=== PATIENT | male | born 1975 | race Caucasian/White ===

== ENCOUNTER 2018-04-07 13:25 | Inpatient (IN) | payer MEDICAID, MEDICARE ==
[2018-04-07 13:26] VITALS: BMI 22.1
--- NOTE | 2018-04-07 14:12 | C.PDOC ---
History Of Present Illness 42-year-old male brought in to the ED for psychiatric evaluation due to suicidal ideation. Patient told his brother he wanted to jump in front of a bus today. Of note, patient was seen here in August 2017 for similar complaints, as well as substance abuse. He admits to IVDA heroin abuse, last use was this morning. Patient denies any redness or swelling on his arms. No fever or chills. Time Seen by Provider: 04/07/18 13:42 Chief Complaint (Nursing): Psychiatric Evaluation History Per: Patient History/Exam Limitations: no limitations Onset/Duration Of Symptoms: Days Current Symptoms Are (Timing): Still Present Associated Symptoms: Suicidal Thoughts Additional History Per: Family (brother) Past Medical History Reviewed: Historical Data, Nursing Documentation, Vital Signs Vital Signs: Last Vital Signs Temp 98.2 F 04/07/18 13:29 Pulse 93 H 04/07/18 13:29 Resp 22 04/07/18 13:29 BP 154/77 H 04/07/18 13:29 Pulse Ox 97 04/07/18 14:15 - Medical History PMH: Depression, Hepatitis (C), Schizophrenia Denies: Diabetes, HIV, HTN, Seizures, Sexually Transmitted Disease Surgical History: Back Surgery - [facility] Procedures DETOXIFICATION SERVICES FOR SUBSTANCE ABUSE TREATMENT (08/30/17) INDIV PSYCHOTHERAPY FOR SUBSTANCE ABUSE TREATMENT, SUPPORT (08/30/17) INDIV PSYCHOTHERAPY FOR SUBSTANCE ABUSE, PSYCHOEDUCATION (08/30/17) MEDICATION MANAGEMENT (08/30/17) PHARMACOTHERAPY FOR SUBSTANCE ABUSE, NICOTINE REPLACE (08/30/17) Family History: States: Unknown Family Hx - Social History Hx Tobacco Use: Yes Hx Alcohol Use: No Hx Substance Use: Yes - Immunization History Hx Tetanus Toxoid Vaccination: No Hx Influenza Vaccination: No Hx Pneumococcal Vaccination: No Review Of Systems Except As Marked, All Systems Reviewed And Found Negative. Constitutional: Negative for: Fever, Chills, Sweats Cardiovascular: Negative for: Chest Pain Respiratory: Negative for: Shortness of Breath Gastrointestinal: Negative for: Vomiting, Abdominal Pain Skin: Negative for: Rash, Lesions Psych: Positive for: Depression, Suicidal ideation. Negative for: Withdrawal Physical Exam - Physical Exam Appears: Non-toxic, No Acute Distress Skin: Normal Color, Warm, Other (Track joel noted to bilateral antecubital fossa, no erythema or edema) Head: Atraumatic, Normacephalic Eye(s): bilateral: Normal Inspection Oral Mucosa: Moist Neck: Normal ROM Chest: Symmetrical Cardiovascular: Rhythm Regular, No Murmur Respiratory: Normal Breath Sounds, No Accessory Muscle Use Gastrointestinal/Abdominal: Soft, No Tenderness, No Distention Extremity: Bilateral: Normal Color And Temperature, Normal ROM Pulses: Left Radial: Normal, Right Radial: Normal Neurological/Psych: Oriented x3, Normal Speech Gait: Other (Ambulates using a cane, at baseline) ED Course And Treatment - Laboratory Results Result Diagrams: 04/07/18 14:18 04/07/18 14:18 Lab Interpretation: Abnormal (+opiates) O2 Sat by Pulse Oximetry: 97 (RA) Pulse Ox Interpretation: Normal - Physician Consult Information Outcome Of Conversation: 1600: d/w Crisis, ok to admit to Psych. pt calm cooperative Medical Decision Making Medical Decision Making: Impression: Suicidal ideation, heroin abuse Plan: --CMP --CBC --Alcohol serum --UDS --UA --Will observe on 1:1 --Awaiting crisis evaluation Disposition Doctor Will See Patient In The: Hospital Counseled Patient/Family Regarding: Studies Performed, Diagnosis - Disposition Disposition: HOSPITALIZED Disposition Time: 15:59 Condition: GOOD Forms: [facility] (Macedonian) - Clinical Impression Clinical Impression: Opioid use disorder, severe, dependence, Depression - Scribe Statement The provider has reviewed the documentation as recorded by the Carroll Vu Provider Attestation: All medical record entries made by the Jatinderibaugustina were at my direction and personally dictated by me. I have reviewed the chart and agree that the record accurately reflects my personal performance of the history, physical exam, medical decision making, and the department course for this patient. I have also personally directed, reviewed, and agree with the discharge instructions and disposition.
[2018-04-07 14:24] LABS: BASO # 0.1 K/uL (0.0-0.2); BASO % 1.3 % (0.0-2.0); EOS % 0.7 % (0.0-4.0); HEMOGLOBIN 12.6 g/dL (12.0-18.0); LYMPH # 0.9 K/uL (1.0-4.3); LYMPH % 17.5 % (20.0-40.0); MEAN CELL VOLUME 89.7 fL (80.0-94.0); MEAN CORPUSCULAR HEMOGLOBIN 30.7 pg (27.0-31.0); MEAN CORPUSCULAR HGB CONC 34.2 g/dL (33.0-37.0); MEAN PLATELET VOLUME 9.8 fL (7.2-11.7); MONO # 0.4 K/uL (0.0-0.8); MONO % 7.5 % (0.0-10.0); NEUT # 3.8 K/uL (1.8-7.0); NRBC % 0.1 % (0.0-2.0); RBC 4.12 Mil/uL (4.40-5.90); WHITE BLOOD COUNT 5.2 K/uL (4.8-10.8)
[2018-04-07 14:35] LABS: ALB/GLOB RATIO 1.4 (1.0-2.1); ALBUMIN 4.3 g/dL (3.5-5.0); ALT/SGPT 41 U/L (21-72); AST/SGOT 25 U/L (17-59); BLOOD UREA NITROGEN 14 mg/dL (9-20); CALCIUM 8.6 mg/dl (8.6-10.4); GFR NON-AFRICAN AMERICAN > 60
[2018-04-07 15:23] LABS: SQUAMOUS EPITHIAL < 1 /hpf (0-5); URINE BILIRUBIN NEGATIVE (NEGATIVE); URINE BLOOD NEGATIVE (NEGATIVE); URINE CLARITY Clear (Clear); URINE COLOR Yellow (YELLOW); URINE GLUCOSE (UA) NORMAL (Normal); URINE LEUKOCYTE ESTERASE 1+ Leu/uL (Negative); URINE PROTEIN NEGATIVE (NEGATIVE)
[2018-04-07 15:42] LABS: BARBITURATES, UR NEGATIVE (NEGATIVE); BENZODIAZEPINES, UR NEGATIVE (NEGATIVE); PHENCYCLIDINE, UR NEGATIVE (NEGATIVE)
[2018-04-07 16:10] LABS: OPIATES, UR POSITIVE (NEGATIVE)
--- NOTE | 2018-04-07 19:15 | PCM.BM ---
<Izzy Merchant - Last Filed: 04/07/18 19:12> Treatment Plan Problems - Problems identified on initial assessmt Depression Date Initiated: 04/07/18 Time Initiated: 19:12 Assessment reference: NA Status: Active Substance Abuse Date Initiated: 04/07/18 Time Initiated: 19:13 Assessment reference: NA Status: Active Treatment assets and liabiliti Patient Assests: adapts well, cooperative, ADL independent, physically healthy, negotiates basic needs, cognitively intact Patient Liabilities: live alone (Homeless), financial problems, substance abuse (Heroin IV use), medical problems (Hep C, Surgery in spine) - Milieu Protocol Maintain good personal hygiene: daily Encourage regular showers, daily Remind patient to perform daily oral care, daily Assist patient to perform ADL's (Self) Conduct patient checks and document Observation sheet: Q15 minutes (Safety) Maintain personal safety: every shift Educate patient to report safety concerns to staff, every shift Monitor environment for contraband/sharps Medication safety: Monitor for expected outcome, potential side effects: every shift, Assess barriers to learning: every shift, Assess readiness for medication education: every shift <Leslee Paiz - Last Filed: 04/12/18 12:12> Family Contact Family involvement: Famliy/SO not involved - Goals for Treatment Patient goals for treatment: "I want to go to rehab." Discharge/Continuing Care - Education Needs Education Needs: Patient Medication, Patient Coping Skills, Patient Placement options, Patient Community resources - Discharge Discharge Criteria: Tolerates medication w/o severe side effects, No longer exhibiting s/s of withdrawal, Reduction of target symptoms Discharge to:: Substance Abuse Rehab - Treatment Team Participation Discussed with Family/SO: No Was Patient/Family/SO present at Treatment Team Meeting: Yes <Aurelio Lopez - Last Filed: 04/14/18 13:15> - Diagnosis (1) Major depressive disorder Status: Acute Interventions: 04/14/18 13:15 * Assess/adjust medications daily and /or as needed * See patient on an individual basis 7x/week to assess symptoms of depression * Monitor for side effects & effectiveness of medications * (2) Opioid use disorder, severe, dependence Status: Acute Interventions: 04/14/18 13:15 * Assess 7x/week regarding severity of withdrawal * Educate regarding risks, benefits, side effects and alternatives of medications * Use Motivational Interviewing for abstinence * Use CBT for relapse prevention * Medication management for withdrawal symptoms * Encourage medication assisted treatment *
--- NOTE | 2018-04-08 23:26 | PCM.PSYCH ---
Initial Psychiatric Evaluation - Initial Psychiatric Evaluation Legal Status: Capacity Chief Complaint (in patient's own words): I'M DEPRESSED AND I NEED HELP TO GET AND STAY SOBER Patient's Reaction to Hospitalization: I FEEL SAFE HERE History of Present Illness and Precipitating Events: PT IS A 42 YEAR OLD HOMELESS SINGLE UNEMPLOYED MALE WHO CAME TO ED BECAUSE OF DEPRESSION AND HEROIN ADDICTION. PT IS ANHEDONIC, ANERGIC AND HAS AMOTIVATION. PT FEELS HELPLESS, HOPELESS AND WORTHLESS. HE IS NOT SLEEPING. PT STARTED USING HEROIN AGE 17. AT HIS WORST HE USED 80 BAGS A DAY. PT NOW USES ABOUT 15 BAGS A DAY. HE HAS HAD 10-20N DETOXES AND HAS BEEN IN REHAB ABOUT 10 TIMES, HIS LONGEST PERIOD OF VOLUNTARY WAS SEVERAL MONTHS. HE WAS INCARCERATED FOR 5 YEARS BECAUSE HE WAS CONVICTED OF ROBBERY. BOTH PARENTS ARE ALIVE . THEY WHEN PT WAS ABOUT 5 YEARS OLD. PT HAS BEEN HOSPITALIZED FOR PSYCHIATRIC REASONS AT [facility] [place]. HE HAS TRIED TO KILL HIMSELF BY OVERDOSING AND STEPPING INTO TRAFFIC Current Medications: Active Medications Generic Name Dose Route Start Last Admin Trade Name Freq PRN Reason Stop Dose Admin Hydroxyzine HCl 50 mg 04/07/18 19:32 18 14:13 Atarax PO 50 mg Q6H PRN Administration Anxiety Ibuprofen 600 mg 04/07/18 19:32 Motrin Tab PO Q6H PRN Pain, moderate (4-7) Mirtazapine 15 mg 04/07/18 22:00 04/08/18 22:52 Remeron PO Not Given HS LACEY Paroxetine HCl 20 mg 04/09/18 10:00 Paxil PO DAILY [facility] Pneumococcal Polyvalent Vaccine 0.5 ml 04/10/18 18:00 Pneumovax 23 Vaccine IM 04/10/18 18:01 .ONCE ONE Trazodone HCl 100 mg 04/07/18 19:32 Desyrel PO HS PRN Insomnia Past Psychiatric History - Past Psychiatric History Prior Professional Help: SEE HPI Pertinent Medical Hx (Current Medical&Sleep Prob, Allergies): Allergies Allergy/AdvReac Type Severity Reaction Status Date / Time No Known Allergies Allergy Verified 04/07/18 13:36 Review of Systems - Constitutional Constitutional: Chills, Sweats, Malaise - EENT Eyes: UNREMARKABLE Ears: UNREMARKABLE Nose/Mouth/Throat: UNREMARKABLE - Cardiovascular Cardiovascular: Radiating Pain, UNREMARKABLE - Respiratory Respiratory: UNREMARKABLE - Gastrointestinal Gastrointestinal: Diarrhea, Nausea - Genitourinary Genitourinary: UNREMARKABLE - Reproductive: Male Reproductive:Male: UNREMARKABLE - Musculoskeletal Musculoskeletal: Arthralgias, Back Pain, Myalgias - Integumentary Integumentary: UNREMARKABLE - Neurological Neurological: UNREMARKABLE - Psychiatric Psychiatric: Abnormal Sleep Pattern, Anhedonia, Change in Appetite, Depression, Difficulty Concentrating, Hopelessness - Endocrine Endocrine: UNREMARKABLE - Hematologic/Lymphatic Hematologic: UNREMARKABLE Mental Status Examination - Personal Presentation Personal Presentation: Looks older than stated age - Affect Affect: Constricted - Motor Activity Motor Activity: Calm - Reliability in Providing Information Reliability in Providing Information: Fair - Speech Speech: Organized - Mood Mood: Depressed, Anxious - Formal Thought Process Formal Thought Process: No Impairment - Obsessions/Compulsions Obsessions: No Compulsions: No - Cognitive Functions Orientation: Person, Place, Situation, Time Sensorium: Alert Attention/Concentration: Attentive Abstract Thinking: Petros Estimate of Intelligence: Average Judgement: Intact, as evidence by: Good judgement Memory: Recent intact, as evidence by: Ability to recall events of the day, Remote intact, as evidenced by: Abilit to recall sig. life events - Risk Risk: Suicidal, Withdrawal - Strength & Assets Inventory Strength & Assets Inventory: Life experience, Cooperative - Limitations Limitations: Living alone DSM 5 DX - DSM 5 DSM 5 Diagnosis: MAJOR DEPRESSIVE DISORDER RECURRENT SEVERE WITHOUT PSYCHOTIC FEATURES PAXIL NEURONTIN TRAZODONE SC CBT GROUP MILIEU AND RECREATIONAL THERAPY SUPPORTIVE PSYCHOTHERAPY OPIOID WITHDRAWAL METHADONE TAPER OPIATE USE DISORDER CBT SC GROUP MILIEU AND RECREATIONAL THERAPY SUPPORTIVE PSYCHOTHERAPY - Recommended/Plan of Treatment Treatment Recommendations and Plan of Treatment: SEE ABOVE Projected ELOS: 10 DAYS Prognosis: GOOD WITH TREATMENT Discharge Plan and Discharge Criteria: NO SUICIDAL IDEATION AND NO ACUTE WITHDRAWAL SYMPTOMS - Smoking Cessation Smoking Cessation Initiated: No
--- NOTE | 2018-04-10 00:40 | PCM.PYCHPN ---
Psychiatric Progress Note - Psychiatric Progress Note Patient Chief Complaint: I WANT TO FEEL BETTER Problems Identified/Issues Discussed: PT SEEN AND EXAMINED DISCUSSED WITH STAFF REVIEWED NURSES' NOTES DISCUSSED WITH PT SIGNS AND SYMPTOMS OF DEPRESSION AND AFTERCARE OPTIONS Medical Problems: NONE NOTED OR REPORTED Diagnostic Results: REVIEWED DSM 5 Symptoms Update: INSOMNIA POOR APPETITE Medication Change: Yes (METHADONE TAPER) Medical Record Reviewed: Yes Mental Status Examination - Cognitive Function Orientation: Person, Place, Situation, Time Memory: Intact Attention: Poor Concentration: Poor Association: WNL Fund of Knowledge: WNL - Mood Mood: Depressed, Anxious - Affect Affect: Constricted - Speech Speech: Appropriate - Formal Thought Process Formal Thought Process: No Impairment - Suicidal Ideation Suicidal Ideation: No - Homicidal Ideation Homicidal Ideation: No Goal/Treatment Plan - Goal/Treatment Plan Need for Continued Stay: Remain at risks for inpatient hospitalization, Discharge may exacerbated symptoms Progress Toward Problem(s) and Goals/Treatment Plan: MDD ME CBT GROUP MILIEU AND RECREATIONAL THERAPY SUPPORTIVE PSYCHOTHERAPY OPIOID WITHDRAWAL METHADONE TAPER OPIOID USE DISORDER CBT ME GROUP MILIEU AND RECREATIONAL THERAPY SUPPORTIVE PSYCHOTHERAPY Estimated Date of D/C: 04/15/18 - Smoking Cessation Smoking Cessation Initiated: No
[2018-04-10 06:10] VITALS: O2SAT 98
--- NOTE | 2018-04-10 10:49 | PCM.PYCHPN ---
Psychiatric Progress Note - Psychiatric Progress Note Patient seen today, length of contact: 15 min Patient Chief Complaint: I am feeling depressed.' Problems Identified/Issues Discussed: Patient seen and evaluated, chart reviewed and discussed with the nurse. Pt still reports depressed mood and at times feelings of hopelessness and helplessness. He remained isolated and withdrawn, and confined to his room. He still reports withdrawal symptoms including cramps, nausea, and joint pains. He denies any AVH or any paranoia. Patient is compliant with medications and denies any side effects. Symptoms are improving but pt needs more time to stabilize. Support and psychoeducation given. Medication Change: Yes (METHADONE TAPER) Medical Record Reviewed: Yes Mental Status Examination - Cognitive Function Orientation: Person, Place, Situation, Time Memory: Intact Attention: WNL Concentration: Poor Association: WNL Fund of Knowledge: WNL - Mood Mood: Depressed, Anxious - Affect Affect: Constricted - Speech Speech: Appropriate - Formal Thought Process Formal Thought Process: No Impairment - Suicidal Ideation Suicidal Ideation: No - Homicidal Ideation Homicidal Ideation: No Goal/Treatment Plan - Goal/Treatment Plan Need for Continued Stay: Remain at risks for inpatient hospitalization, Discharge may exacerbated symptoms Progress Toward Problem(s) and Goals/Treatment Plan: Major depressive disorder recurrent severe without psychotic features CBT Psychoeducation Supportive therapy, group therapy Paxil 20 mg by mouth daily Mirtazapine 15 mg PO QHS Neurontin 300 mg PO TID Gabapentin for augmentation Trazodone for insomnia Hydroxyzine for anxiety Opiate use disorder severe CBT Psychoeducation Supportive therapy, individual therapy Use [place] for abstinence Opiate withdrawal uncomplicated CBT Psychoeducation Supportive therapy, individual therapy Methadone taper G Estimated Date of D/C: 04/15/18
[2018-04-10] MEDS ORDERED: Pneumococcal 23-Valent Vaccine IM ONE (18:00)
--- NOTE | 2018-04-12 00:43 | PCM.PYCHPN ---
Psychiatric Progress Note - Psychiatric Progress Note Patient seen today, length of contact: 15 min Patient Chief Complaint: I am feeling depressed.' Problems Identified/Issues Discussed: Patient seen and evaluated, chart reviewed and discussed with the nurse. As per the staff he appears little better than yesterday. He still reports depressed mood but reports some improvement in feelings of hopelessness and helplessness. He remained isolated and withdrawn, and confined to his room. He still reports withdrawal symptoms including cramps, nausea, and joint pains. He denies any AVH or any paranoia. Patient is compliant with medications and denies any side effects. Symptoms are improving but pt needs more time to stabilize. Support and psychoeducation given. Medication Change: Yes (METHADONE TAPER) Medical Record Reviewed: Yes Mental Status Examination - Cognitive Function Orientation: Person, Place, Situation, Time Memory: Intact Attention: WNL Concentration: Poor Association: WNL Fund of Knowledge: WNL - Mood Mood: Depressed, Anxious - Affect Affect: Constricted - Speech Speech: Appropriate - Formal Thought Process Formal Thought Process: No Impairment - Suicidal Ideation Suicidal Ideation: No - Homicidal Ideation Homicidal Ideation: No Goal/Treatment Plan - Goal/Treatment Plan Need for Continued Stay: Remain at risks for inpatient hospitalization, Discharge may exacerbated symptoms Progress Toward Problem(s) and Goals/Treatment Plan: Major depressive disorder recurrent severe without psychotic features CBT Psychoeducation Supportive therapy, group therapy Paxil 20 mg by mouth daily Mirtazapine 15 mg PO QHS Gabapentin for augmentation Trazodone for insomnia Hydroxyzine for anxiety Opiate use disorder severe CBT Psychoeducation Supportive therapy, individual therapy Use [place] for abstinence Opiate withdrawal uncomplicated CBT Psychoeducation Supportive therapy, individual therapy Methadone taper G Estimated Date of D/C: 04/15/18 - Smoking Cessation Smoking Cessation Initiated: No
--- NOTE | 2018-04-12 14:24 | PCM.PYCHPN ---
Psychiatric Progress Note - Psychiatric Progress Note Patient seen today, length of contact: 15 min Patient Chief Complaint: "I feel great." Problems Identified/Issues Discussed: Pt is seen, chart reviewed, case discussed with staff. Pt is compliant with medications and reports no side-effects. Symptoms are improving but needs more time to stabilize; pt is happy with treatment. After care discussed; pt will be attending [facility] after discharge. Medication Change: Yes (METHADONE TAPER) Medical Record Reviewed: Yes Mental Status Examination - Cognitive Function Orientation: Person, Place, Situation, Time Memory: Intact Attention: WNL Concentration: Poor Association: WNL Fund of Knowledge: WNL - Mood Mood: Depressed, Anxious - Affect Affect: Constricted - Speech Speech: Appropriate - Formal Thought Process Formal Thought Process: No Impairment - Suicidal Ideation Suicidal Ideation: No - Homicidal Ideation Homicidal Ideation: No Goal/Treatment Plan - Goal/Treatment Plan Need for Continued Stay: Remain at risks for inpatient hospitalization, Discharge may exacerbated symptoms Progress Toward Problem(s) and Goals/Treatment Plan: Continue medications. Support and psychoeducation daily Attend groups and activities daily After care planning by DAYNE 15 min Estimated Date of D/C: 04/15/18
[2018-04-13 06:50] VITALS: RESP 18
--- NOTE | 2018-04-13 13:48 | PCM.PYCHPN ---
Psychiatric Progress Note - Psychiatric Progress Note Patient seen today, length of contact: 15 min Patient Chief Complaint: I am feeling little better.' Problems Identified/Issues Discussed: Patient seen and evaluated, chart reviewed and discussed with the nurse. Pt reports some improvement in the depressed mood and reports some improvement in feelings of hopelessness and helplessness. He remained isolated and withdrawn, and confined to his room. He reports some improvement in the withdrawal symptoms. He denies any AVH or any paranoia. Patient is compliant with medications and denies any side effects. Symptoms are improving but pt needs more time to stabilize. Support and psychoeducation given. Medication Change: Yes (METHADONE TAPER) Medical Record Reviewed: Yes Mental Status Examination - Cognitive Function Orientation: Person, Place, Situation, Time Memory: Intact Attention: WNL Concentration: Poor Association: WNL Fund of Knowledge: WNL - Mood Mood: Depressed, Anxious - Affect Affect: Constricted - Speech Speech: Appropriate - Formal Thought Process Formal Thought Process: No Impairment - Suicidal Ideation Suicidal Ideation: No - Homicidal Ideation Homicidal Ideation: No Goal/Treatment Plan - Goal/Treatment Plan Need for Continued Stay: Remain at risks for inpatient hospitalization, Discharge may exacerbated symptoms Progress Toward Problem(s) and Goals/Treatment Plan: Major depressive disorder recurrent severe without psychotic features CBT Psychoeducation Supportive therapy, group therapy Paxil 20 mg by mouth daily Mirtazapine 15 mg PO QHS Gabapentin for augmentation Trazodone for insomnia Hydroxyzine for anxiety Opiate use disorder severe CBT Psychoeducation Supportive therapy, individual therapy Use [place] for abstinence Opiate withdrawal uncomplicated CBT Psychoeducation Supportive therapy, individual therapy Methadone taper G Estimated Date of D/C: 04/15/18
[2018-04-14 06:43] VITALS: TEMP 97.9
--- NOTE | 2018-04-14 10:03 | PCM.PYCHDC ---
Mental Status Examination - Mental Status Examination Orientation: Person, Place, Situation, Time Memory: Intact Mood: Neutral Affect: Constricted Speech: Soft Attention: WNL Concentration: WNL Association: WNL Fund of Knowledge: WNL Formal Thought Process: No Impairment Description of patient's judgement and insight: good, fair Psychotic Thoughts and Behaviors: denies any AVH Suicidal Ideation: No Current Homicidal Ideation?: No Discharge Summary - Discharge Note Reason for Hospitalization: Pt is a 42 year old homeless single unemployed male who came to ed because of depression and heroin addiction. Pt is anhedonic, anergic and has amotivation. Pt feels helpless, hopeless and worthless. He is not sleeping. Pt started using heroin age 17. At his worst he used 80 bags a day. Pt now uses about 15 bags a day. He has had 10-20n detoxes and has been in rehab about 10 times, his longest period of voluntary was several months. He was incarcerated for 5 years because he was convicted of robbery. Both parents are alive . They when pt was about 5 years old. Pt has been hospitalized for psychiatric reasons at [facility]. He has tried to kill himself by overdosing and stepping into traffic Consultations:: List each consultation separately and include: 1. Reason for request. 2. Findings. 3. Follow-up Summary of Hospital Course include:: 1. Description of specific treatment plan utilized for patients during their course of treatmen. 2. Summarize the time- course for resolution of acute symptoms and/or regressed behaviors. 3. Describe issues identified and worked on during hospitalization. 4. Describe medication utilized. 5. Describe medical problems identified and treated. 6. Reassessment of suicide risk Summary of Hospital Course: During the course of his stay, patient (pt) started progressively improving and no longer remained irritable, depressed, and suicidal. Remeron and paxil were started and pt showed a very good response. His mood and anxiety were improved and he started attending groups and meetings and started socializing. Patient denied any feelings of hopelessness, helplessness, and worthlessness, denied any problem with the sleep or appetite, denied suicidal ideation or homicidal ideation. Pt denied any auditory or visual hallucinations. He denied any withdrawal symptoms. Pt was treated with medications along with supportive therapy, milieu therapy and group therapy. Some changes were made in his current medications and patient was discharged on following medications. He tolerated these medications very well and denied any side effects. - Final Diagnosis (DSM 5) Condition upon Discharge: GOOD DSM 5: Major depressive disorder recurrent severe without psychotic features Opioid withdrawal Opiate use disorder Disposition: HOME/ ROUTINE Follow-up Treatment Plan: Followup: He was discharged to the [facility] in [place] . Education: Pt was educated and counseled about the risks and benefits of taking and not taking medications. Pt was educated and counseled about the risks of drinking and abusing drugs. Pt was educated and counseled to go to the ER or call 911 if pt develop suicidal ideation or homicidal ideation, worsening of symptoms or severe side effects of the meds. Prescriptions/Medication Reconciliation: Mirtazapine [Remeron] 15 mg PO HS #30 tab PARoxetine [Paxil] 20 mg PO DAILY #30 tab traZODone [Desyrel] 100 mg PO HS PRN #30 tab PRN Reason: Insomnia - Smoking Cessation Smoking Cessation Medication prescribed: No - Antipsychotic Medications Pt discharged on 2 or more routine antipsychotic medications: No
[2018-04-14 10:30] VITALS: BP 109/67; PULSE 81
== END 2018-04-14 11:11 | disposition home or self-care (01) | DRG 885 ==
LOC: C.ER 13:25 → C.5E 15:57
PROVIDERS: ADMIT Psychiatry & Neurology Psychiatry; ATTEND Psychiatry & Neurology Psychiatry
PROC: HZ2ZZZZ Detoxification Services for Substance Abuse Treatment (ICD-10-PCS; principal; 2018-04-07)
PROC: GZHZZZZ Group Psychotherapy (ICD-10-PCS; 2018-04-07)
PROC: GZ56ZZZ Individual Psychotherapy, Supportive (ICD-10-PCS; 2018-04-07)
DX: F33.2 Major depressive disorder, recurrent severe without psychotic features (principal); F11.23 Opioid dependence with withdrawal; R45.851 Suicidal ideations; F41.9 Anxiety disorder, unspecified; G47.00 Insomnia, unspecified; Z59.0 Homelessness; Z87.891 Personal history of nicotine dependence